=== PATIENT | female | born 1960 | race Caucasian/White ===

== ENCOUNTER 2018-08-15 09:46 | Day surgery (SDC) | payer MEDICARE, MEDICAID ==
[2018-08-15] VITALS (9 sets, daily range): BP systolic 150–185; BP diastolic 64–84
[~2018-08-15] VITALS: Ht 152.4 cm; Wt 75.1 kg
[~2018-08-15 09:46] MED LIST: ASPI-1071 PO; ATE25T PO; ATOR40TA3 PO; CALC500T11 PO; DOCUMENT DATE & TIME OF BETA-BLOCKER PO ONE; FERR-29 PO; HYDR-3973 PO; LEVO125T8 PO; LOSA50TA21 PO; MULT-38 PO; OMEP40CA37 PO; PIOG30TA10 PO; SERT50TA PO; TEN1T PO; TRIA15CR61 TOP; VANCOMYCIN INJ 1000 MG in NORMAL SALINE 250ml IV.SOLN IV ONE; ZOLP5TAB8 PO; acetaminophen 325mg tablet PO ONE; celeCOXIB 100mg capsule PO ONE; famotidine 20mg tablet PO ONE; gabapentin 300mg capsule PO ONE; metoclopramide 5 mg/ml inj IV ONE; oxyCODONE SR 10mg (sust. release) tab -2 tabs (20mg) PO ONE; ringers solution, lacted 1,000 ML IV SCH
[2018-08-15 11:34] LABS: BASOPHILS # (AUTO) 0.1 X10'3 (0-0.2); BASOPHILS % (AUTO) 0.7 % (0-1); EOSINOPHILS # (AUTO) 0.2 X10'3 (0-0.9); EOSINOPHILS % (AUTO) 1.9 % (0-6); LYMPHOCYTES # (AUTO) 1.7 X10'3 (1.1-4.8); MEAN CORPUSCULAR HEMOGLOBIN 27.2 PG (27.0-31.0); MEAN CORPUSCULAR HGB CONC 32.8 % (33.0-36.5); MEAN CORPUSCULAR VOLUME 83.1 FL (78-98); MEAN PLATELET VOLUME 9.3 FL (7.4-10.4); MONOCYTES # (AUTO) 0.5 X10'3 (0-0.9); MONOCYTES % (AUTO) 5.4 % (2-12); NEUTROPHILS # (AUTO) 6.1 X10'3 (1.8-7.7); PRE OP HEMATOCRIT 38.4 % (35.0-45.0); PRE OP HEMOGLOBIN 12.6 g/dL (12.0-16.0); PRE OP PLATELET COUNT 218 X10'3 (140-440); RED BLOOD COUNT 4.62 X10'6 (4.20-5.60); RED CELL DISTRIBUTION WIDTH 15.4 % (11.5-14.5)
[2018-08-15] MEDS ORDERED: cefazolin/dext.iso 2gm/100 ML IV ONE (11:52)
[2018-08-15 12:04] LABS: ALANINE AMINOTRANSFERASE 21 U/L (12-78); ALBUMIN 3.2 G/DL (3.4-5.0); ALBUMIN/GLOBULIN RATIO 0.9 (1.1-1.5); ALKALINE PHOSPHATASE 122 IU/L (46-116); ANION GAP 8 (8-16); ASPARTATE AMINO TRANSFERASE 20 U/L (10-37); BILIRUBIN,TOTAL 0.4 MG/DL (0.1-1.0); BLOOD UREA NITROGEN 28 MG/DL (7-18); BUN/CREATININE RATIO 20.3 (6.6-38.0); CALCIUM 8.9 MG/DL (8.5-10.1); CHLORIDE 106 MMOL/L (99-107); CREATININE 1.38 MG/DL (0.40-0.90); GLUCOSE 146 MG/DL (70-104); POTASSIUM 5.1 MMOL/L (3.5-5.1); SODIUM 142 MMOL/L (135-145); TOTAL CARBON DIOXIDE 28.5 MMOL/L (24-32); TOTAL PROTEIN 6.8 G/DL (6.4-8.2); eGFR 39 ML/MIN
[2018-08-15] MEDS ORDERED: ROPIVAcaine 0.5% (5mg/ml) 30ml vial ONE (12:20)
[2018-08-15] MEDS ORDERED: midazolam 2 mg/2 ml injection ONE (12:22)
[2018-08-15] MEDS ORDERED: fentaNYL/PF 50MCG/1 ML 2ML syringe ONE (12:22)
[2018-08-15] MEDS ORDERED: propofol inj 20 ML IV ONE (12:24)
[2018-08-15] MEDS ORDERED: LIDOcaine 2% (20mg/ml) 5ml vial ONE (12:24)
[2018-08-15] MEDS ORDERED: sevoflurane 250ml liquid IH ONE (12:42)
[2018-08-15] MEDS ORDERED: cefazolin/dext.iso 2gm/50ml 50 ML IV ONE (12:55)
[2018-08-15] MEDS ORDERED: ceFAZolin 1GM/D5W- ADD-VANTAGE 50 ML IV ONE (12:55)
[2018-08-15] MEDS ORDERED: ePHEDrine 50MG/ML INJ. ONE (13:11)
[2018-08-15] MEDS ORDERED: enalaprilat dihydrate 2.5mg/2ml vial IV PRN (13:30)
[2018-08-15] MEDS ORDERED: ondansetron/PF 4mg/2ml inj IV PRN (13:30)
[2018-08-15] MEDS ORDERED: hydrALAZINE 20mg/ml inj. IV PRN (13:30)
[2018-08-15] MEDS ORDERED: morphine 4 MG/ML inj SYRINge IV PRN ×2 (13:30)
[2018-08-15] MEDS ORDERED: ringers solution, lacted 1,000 ML IV SCH (13:30)
[2018-08-15] MEDS ORDERED: fentaNYL/PF 50MCG/1 ML 2ML syringe IV PRN ×2 (13:30)
[2018-08-15] MEDS ORDERED: naloxone 0.4 mg/ml inj ONE (13:52)
== END 2018-08-15 15:18 | disposition home or self-care (01) ==
LOC: PAS 09:46
PROVIDERS: ATTEND Orthopaedic Surgery
DX: S52.552B Other extraarticular fracture of lower end of left radius, initial encounter for open fracture type I or II (principal); G89.18 Other acute postprocedural pain; E89.0 Postprocedural hypothyroidism; G47.33 Obstructive sleep apnea (adult) (pediatric); I25.2 Old myocardial infarction; E11.22 Type 2 diabetes mellitus with diabetic chronic kidney disease; F32.9 Major depressive disorder, single episode, unspecified; E66.9 Obesity, unspecified; I25.10 Atherosclerotic heart disease of native coronary artery without angina pectoris; K21.9 Gastro-esophageal reflux disease without esophagitis; I12.9 Hypertensive chronic kidney disease with stage 1 through stage 4 chronic kidney disease, or unspecified chronic kidney disease; N18.9 Chronic kidney disease, unspecified; Z68.32 Body mass index [BMI] 32.0-32.9, adult; Z82.49 Family history of ischemic heart disease and other diseases of the circulatory system; Z95.828 Presence of other vascular implants and grafts; Z79.82 Long term (current) use of aspirin; Z79.891 Long term (current) use of opiate analgesic; Z88.0 Allergy status to penicillin; Z95.5 Presence of coronary angioplasty implant and graft; Z79.899 Other long term (current) drug therapy; Z88.8 Allergy status to other drugs, medicaments and biological substances; Z98.890 Other specified postprocedural states; W19.XXXA Unspecified fall, initial encounter; Y93.89 Activity, other specified; Y92.89 Other specified places as the place of occurrence of the external cause; Y99.8 Other external cause status
CPT/HCPCS: 25607; 36415; 64417; 80053; 82948; 85025; A4565; A6222; A6446; A6449; C1713; J0690; J2001; J2250; J2310; J2704; J2765; J2795; J3010; J3370; J7120; A7000

== ENCOUNTER 2018-12-05 04:29 | Outpatient (CLI) | payer MEDICARE, MEDICAID ==
[~2018-12-05 04:29] MED LIST changes: -DOCUMENT DATE & TIME OF BETA-BLOCKER PO ONE; -LOSA50TA21 PO; +LOSA50TA64 PO; -VANCOMYCIN INJ 1000 MG in NORMAL SALINE 250ml IV.SOLN IV ONE; -acetaminophen 325mg tablet PO ONE; -celeCOXIB 100mg capsule PO ONE; -famotidine 20mg tablet PO ONE; -gabapentin 300mg capsule PO ONE; -metoclopramide 5 mg/ml inj IV ONE; -oxyCODONE SR 10mg (sust. release) tab -2 tabs (20mg) PO ONE; -ringers solution, lacted 1,000 ML IV SCH
== END 2018-12-05 23:59 | disposition home or self-care (01) ==
LOC: DIABETIC 04:29
PROVIDERS: ATTEND Family Medicine
DX: E11.65 Type 2 diabetes mellitus with hyperglycemia (principal); I10 Essential (primary) hypertension; K21.9 Gastro-esophageal reflux disease without esophagitis; Z79.899 Other long term (current) drug therapy; Z79.82 Long term (current) use of aspirin
CPT/HCPCS: G0108

== ENCOUNTER 2021-03-09 12:31 | Outpatient (CLI) | payer MEDICARE, MEDICAID ==
[~2021-03-09] VITALS: Ht 152.4 cm; Wt 62.6 kg
[~2021-03-09 12:31] MED LIST changes: -ATOR40TA3 PO; +ATOR40TA7 PO; +OMEP40CA21 PO; -OMEP40CA37 PO
[2022-02-06] MEDS ORDERED: TAMO20TA4 PO (11:38)
[2022-02-06] MEDS ORDERED: INSU100I25 SQ (11:38)
[2022-02-06] MEDS ORDERED: DULA1.5P SQ ×2 (11:38→12:28)
[2022-02-06] MEDS ORDERED: LEVO150T8 PO (11:38)
[2022-02-06] MEDS ORDERED: CHOL100017 PO (11:38)
[2022-02-06] MEDS ORDERED: ZOLP10TA PO (11:38)
[2022-02-06] MEDS ORDERED: ATOR40TA72 PO (11:38)
[2022-02-06] MEDS ORDERED: ATEN50TA8 PO (11:38)
[2022-02-06] MEDS ORDERED: FERR325T7 PO (11:38)
[2022-02-06] MEDS ORDERED: VENL37.589 PO (11:38)
[2022-02-06] MEDS ORDERED: NITR0.4T51 SL (11:39)
[2022-03-09 13:42] LABS: ABG BASE EXCESS 0.5 mmol/L (-2.0-2.0); ABG HCO3 23.1 mmol/L (22.0-26.0); ABG OXYGEN SATURATION 95.9 % (94-97); ABG PCO2 (T) 30.6 mmHg (32.0-45.0); ABG PO2 (T) 82.3 mmHg (75.0-100.0); ALLEN'S TEST POSITIVE; FCOHb 0.4 % (0.0-3.9); FMetHb 0.1 % (0.0-1.5); FO2Hb 95.4 % (94-97)
[2022-03-09 15:07] LABS: PRE OP PROTIME 10.8 SECONDS (9.0-12.0)
[2022-03-09 15:17] LABS: ALBUMIN 2.9 G/DL (3.4-5.0); ALBUMIN/GLOBULIN RATIO 0.6 (1.1-1.5); ALKALINE PHOSPHATASE 101 IU/L (46-116); BLOOD UREA NITROGEN 17 MG/DL (7-18); BUN/CREATININE RATIO 9.4 (6.6-38.0); CALCIUM 8.7 MG/DL (8.5-10.1); CHLORIDE 101 MMOL/L (99-107); CREATININE 1.81 MG/DL (0.40-0.90); PRE OP ALT 55 U/L (30-65); PRE OP ANION GAP 13 (8-16); PRE OP AST 50 U/L (10-37); PRE OP BILIRUB, TOTAL 0.8 MG/DL (0.0-1.0); PRE OP POTASSIUM 4.1 MMOL/L (3.4-5.1); PRE OP SODIUM 141 MMOL/L (135-145); TOTAL CARBON DIOXIDE 27.1 MMOL/L (24-32); TOTAL PROTEIN 7.7 G/DL (6.4-8.2); eGFR 28 ML/MIN
[2022-03-09 15:18] LABS: HEMOGLOBIN A1C 9.8 % (4.5-6.2)
[2022-03-09 15:24] LABS: PRE OP GLUCOSE 356 MG/DL (70-104)
[2022-03-11] MEDS ORDERED: ringers solution, lacted 1,000 ML IV SCH (05:00)
[2022-03-11] MEDS ORDERED: vancomycin/NS 1 GM in NS 250 ML IV ONE (05:30)
[2022-03-11] MEDS ORDERED: DOCUMENT DATE & TIME OF BETA-BLOCKER PO ONE (05:30)
[2022-03-11] MEDS ORDERED: metoprolol tartrate 12.5mg (1/2 tablet) PO ONE (05:30)
[2022-03-11] MEDS ORDERED: albuterol 2.5 MG/3 ML nebule NEB ONE (05:30)
[2022-03-11] MEDS ORDERED: mupirocin 2% nasal ointment 1gm UD NS PRN (05:30)
[2022-03-11] MEDS ORDERED: famotidine 20mg tablet PO ONE (05:30)
[2022-03-11] MEDS ORDERED: cefazolin/dext.iso 2gm/50ml IV ONE (05:30)
[2022-03-11] MEDS ORDERED: Insulin Reg/NS 100units/100mL 100 ML IV SCH (05:30)
[2022-03-11] MEDS ORDERED: LORazepam 2 mg/ml vial IV PRN (05:30)
== END 2022-03-09 23:59 | disposition home or self-care (01) ==
LOC: PRE-OP 12:31 → EDSTATUS 03-11 08:00
PROVIDERS: ATTEND Thoracic Surgery (Cardiothoracic Vascular Surgery)
DX: Z01.812 Encounter for preprocedural laboratory examination (principal); R94.31 Abnormal electrocardiogram [ECG] [EKG]; I65.23 Occlusion and stenosis of bilateral carotid arteries; R94.2 Abnormal results of pulmonary function studies; I25.10 Atherosclerotic heart disease of native coronary artery without angina pectoris; Z20.822 Contact with and (suspected) exposure to COVID-19
CPT/HCPCS: 36415; 36600; 71046; 80053; 82803; 83036; 84443; 85018; 85610; 85730; 86885; 86900; 86901; 86920; 87081; 87635; 93005; 93880; 93971; J0690; J1815; J3370; J7120

== ENCOUNTER 2022-02-05 16:27 | Inpatient (IN) | payer MEDICARE, MEDICAID ==
[~2022-02-05] VITALS: Ht 154.9 cm; Wt 60.5 kg
[2022-02-05 18:05] LABS: BASOPHILS # (AUTO) 0.1 X10'3 (0-0.2); BASOPHILS % (AUTO) 0.8 % (0-1); EOSINOPHILS % (AUTO) 0.1 % (0-6); HEMATOCRIT 32.5 % (35.0-45.0); HEMOGLOBIN 10.4 g/dl (12.0-16.0); LYMPHOCYTES # (AUTO) 1.8 X10'3 (1.1-4.8); LYMPHOCYTES % (AUTO) 9.9 % (21-51); MEAN CORPUSCULAR HGB CONC 32.1 g/dL (33.0-36.5); MEAN CORPUSCULAR VOLUME 84.2 FL (78-98); MEAN PLATELET VOLUME 8.3 FL (7.4-10.4); MONOCYTES # (AUTO) 1.2 X10'3 (0-0.9); MONOCYTES % (AUTO) 6.6 % (2-12); NEUTROPHILS # (AUTO) 14.8 X10'3 (1.8-7.7); NEUTROPHILS % (AUTO) 82.6 % (42-75); PLATELET COUNT 465 X10'3 (140-440); RED BLOOD COUNT 3.86 X10'6 (4.20-5.60); RED CELL DISTRIBUTION WIDTH 13.4 % (11.5-14.5); WHITE BLOOD COUNT 17.9 X10'3 (4.5-11.0)
[2022-02-05 18:14] LABS: ALANINE AMINOTRANSFERASE 32 U/L (12-78); ALBUMIN 2.3 G/DL (3.4-5.0); ALBUMIN/GLOBULIN RATIO 0.5 (1.1-1.5); ALKALINE PHOSPHATASE 75 IU/L (46-116); ANION GAP 13 (8-16); ASPARTATE AMINO TRANSFERASE 21 U/L (10-37); BILIRUBIN,TOTAL 0.5 MG/DL (0.1-1.0); BLOOD UREA NITROGEN 26 MG/DL (7-18); CALCIUM 8.7 MG/DL (8.5-10.1); CHLORIDE 98 MMOL/L (99-107); GLUCOSE 409 MG/DL (70-104); POTASSIUM 4.3 MMOL/L (3.5-5.1); SODIUM 133 MMOL/L (135-145); TOTAL CARBON DIOXIDE 22.1 MMOL/L (24-32); TOTAL PROTEIN 6.8 G/DL (6.4-8.2); eGFR 25 ML/MIN
[2022-02-05] MEDS ORDERED: normal saline 1000ML IV soln IVB ONE (18:25)
--- NOTE | 2022-02-05 18:37 | NUR ---
PATIENT'S CAREGIVER (FRIEND) WALT BOB CONTACT NUMBER:
[2022-02-05] MEDS ORDERED: CefTRIAXone 2gm/NS 100ml IVPB 100 ML IV ONE (20:00)
[2022-02-05] MEDS ORDERED: HYDROcodone/acetaminophen 10/325mg tab PO PRN (21:55)
[2022-02-05] MEDS ORDERED: mag hydrox/Alum hydrox/simeth 30ml oral suspension PO PRN (21:55)
[2022-02-05] MEDS ORDERED: normal saline 1000ml 1,000 ML IV SCH (21:55)
[2022-02-05] MEDS ORDERED: magnesium hydroxide 30ml (MOM) UD suspension PO PRN (21:55)
[2022-02-05] MEDS ORDERED: morphine 2 MG/ML inj. syringe IV PRN (21:55)
[2022-02-05] MEDS ORDERED: diphenhydrAMINE 50 mg/ml inj IV PRN (21:55)
[2022-02-05] MEDS ORDERED: acetaminophen 325mg tablet PO PRN ×2 (21:55)
[2022-02-05] MEDS ORDERED: diphenhydrAMINE 25mg capsule PO PRN (21:55)
[2022-02-05] MEDS ORDERED: ipratropium/albuterol 3ml nebule NEB PRN (21:55)
[2022-02-05] MEDS ORDERED: acetaminophen 650mg rectal suppository RC PRN (21:55)
[2022-02-05] MEDS ORDERED: bisacodyl 10mg suppository rectal RC PRN (21:55)
[2022-02-05] MEDS ORDERED: ondansetron/PF 4mg/2ml inj IV PRN (21:55)
[2022-02-05] MEDS ORDERED: HYDROcodone/acetaminophen 5mg/325mg tablet PO PRN (21:55)
[2022-02-05] MEDS ORDERED: glucagon, human recombinant 1mg kit SUBCUT PRN (22:05)
[2022-02-05] MEDS ORDERED: dextrose 50%-water 50ml dispensing syringe IV PRN ×2 (22:05)
[2022-02-05] MEDS ORDERED: MESSAGE TO PHARMACY PO ONE (22:05)
[2022-02-05] MEDS ORDERED: DEXTROSE 15 GM of carb/4 tabs (each vial/BOTTLE has 4 tablets) PO PRN ×2 (22:05)
[2022-02-05] MEDS: normal saline 1000ml 1,000 ML IV SCH (22:23)
[2022-02-05 22:30] LABS: HEMOGLOBIN A1C 10.3 % (4.5-6.2)
[2022-02-05 22:37] LABS: CREATINE KINASE 24 U/L (26-192); LIPASE < 50 U/L (73-393); MAGNESIUM 1.8 MG/DL (1.5-2.4); PHOSPHORUS 3.1 MG/DL (2.3-4.5)
[2022-02-05 23:02] LABS: APTT 26 SECONDS (22-32); D-DIMER 4.89 MG/L FEU (0-0.50)
[2022-02-06] VITALS (8 sets, daily range): BP systolic 115–195; BP diastolic 46–92
[2022-02-06 06:05] LABS: CHOL/HDL RATIO 4.2 (0.00-4.99); CHOLESTEROL 144 MG/DL (0-200); HDL CHOLESTEROL 34 MG/DL (35-60); LDL CHOLESTEROL 77 MG/DL (50-100); TRIGLYCERIDES 138 MG/DL (20-135)
[2022-02-06] MEDS: docusate sod 100mg capsule PO SCH ×2 (08:00→19:09)
[2022-02-06] MEDS: heparin, porcine 5000 units/ml vial SQ SCH ×2 (08:00→19:09)
[2022-02-06] MEDS ORDERED: magnesium 4gm in 100ml NS 100 ML IV PRN (08:55)
[2022-02-06] MEDS ORDERED: potassium CL 10mEq/100ml bag 100 ML IV PRN (08:55)
[2022-02-06] MEDS ORDERED: potassium Cl 20 mEq SR tablet PO PRN (08:55)
[2022-02-06] MEDS ORDERED: magnesium Cl slow-release 64mg tablet PO PRN (08:55)
[2022-02-06] MEDS: insulin Lispro (HumaLOG) vial - multi-dose SQ SCH ×3 (09:23→21:05)
[2022-02-06] MEDS: azithromycin/NS 500mg/250ml 250 ML IV SCH (10:54)
[2022-02-06] MEDS: ipratropium/albuterol 3ml nebule NEB SCH ×4 (10:58→22:24)
[2022-02-06 11:05] LABS: PLEURAL FLUID PH 7.405 (7.63-7.65)
[2022-02-06 11:06] LABS: BFSOURCE PLEURAL FLD
[2022-02-06] MEDS ORDERED: VENL37.589 PO (11:38)
[2022-02-06] MEDS ORDERED: CHOL100017 PO (11:38)
[2022-02-06] MEDS ORDERED: FERR325T7 PO (11:38)
[2022-02-06] MEDS ORDERED: ZOLP10TA PO (11:38)
[2022-02-06] MEDS ORDERED: LEVO150T8 PO (11:38)
[2022-02-06] MEDS ORDERED: INSU100I25 SQ (11:38)
[2022-02-06] MEDS ORDERED: DULA1.5P SQ ×2 (11:38→12:28)
[2022-02-06] MEDS ORDERED: TAMO20TA4 PO (11:38)
[2022-02-06] MEDS ORDERED: ATOR40TA72 PO (11:38)
[2022-02-06] MEDS ORDERED: ATEN50TA8 PO (11:38)
[2022-02-06 11:39] LABS: GLUCOSE,BODY FLUID 270 MG/DL; LDH,BODY FLUID 105 U/L; TOTAL PROTEIN,BODY FLUID 3.9 G/DL
[2022-02-06] MEDS ORDERED: NITR0.4T51 SL (11:39)
[2022-02-06 11:49] LABS: BF MESOTHELIAL CELLS FEW; BF RBC COUNT 2025 /CU MM; BF WBC COUNT 545 /CU MM (0-1000); BFAPPEAR CLOUDY; BFCOLOR YELLOW; BFVOLUME 52 ML; LYMPHOCYTES,BODY FLUID 75 %; MONOCYTES,BODY FLUID 2 %; NEUTROPHILS,BODY FLUID 23 %
--- NOTE | 2022-02-06 16:37 | NUR ---
DM consult: Pt w/ hx DM, A1c 10.3 per EMR. human resource internship provided pt at bedside w/ written and verbal DM education including RD contact information. Pt states she eats typical meals of spaghetti or chili at lunch and dinner, sandwiches or burritos for breakfast, and salads and fruit for snacks. Pt did not have any questions. Will continue to follow. Addendum: 02/06/22 at 1637 by Sandy Goddard Clinical Auditor RD Amended: Links added. Addendum: 02/06/22 at [address] I have reviewed and agree with note by Clinical Auditor. CHARLETTE Camejo
--- NOTE | 2022-02-06 18:39 | NUR ---
Patient in room MED 314. I have received report from Shantanu JAVIER and had the opportunity to ask questions and assume patient care.
[2022-02-06] MEDS: K and/or MAG REPLACEMENT MC SCH (19:08)
[2022-02-06] MEDS: cefTRIAXone 1g/NS 100ml IVPB 100 ML IV SCH (19:08)
[2022-02-06] MEDS: insulin glargine (Lantus) pen - multi-dose SQ SCH (21:07)
[2022-02-06] MEDS ORDERED: nitroGLYCERIN 0.4mg SUBLingual tab SL PRN (22:55)
[2022-02-06 23:01] LABS: CLARITY,URINE CLOUDY (Clear); COLOR,URINE YELLOW (Yellow); GLUCOSE, URINE 100 mg/dl (Neg); KETONES,URINE 15 mg/dl (Neg); LEUKOCYTE ESTERASE ,URINE SMALL (Neg); NITRITES, URINE NEGATIVE (Neg); OCCULT BLOOD,URINE NEGATIVE (Neg); PH,URINE 5.5 (4.8-8.0); PROTEIN,URINE TRACE mg/dl (Neg); UROBILINOGEN,URINE 0.2 E.U/dL (0.2-1.0)
[2022-02-06 23:08] LABS: UA COLLECTION TYPE OTHER
[2022-02-06 23:22] LABS: BACTERIA,URINE FEW /HPF (Neg); RBC,URINE NONE SEEN /HPF (0-2)
[2022-02-06 23:23] LABS: MUCUS STRANDS NONE SEEN /LPF (Neg); SQUAMOUS EPITHELIAL CELL,UR FEW /LPF (FEW); YEAST MANY /HPF (NEGATIVE)
[2022-02-07 02:00] VITALS: BP 139/56
[2022-02-07] MEDS: ipratropium/albuterol 3ml nebule NEB SCH ×6 (03:18→23:40)
[2022-02-07 06:00] VITALS: BP 131/50
--- NOTE | 2022-02-07 06:20 | NUR ---
Problems reprioritized. Patient report given, questions answered & plan of care reviewed with Ginny JAVIER.
[2022-02-07 07:02] LABS: BASOPHILS # (AUTO) 0.1 X10'3 (0-0.2); BASOPHILS % (AUTO) 0.6 % (0-1); EOSINOPHILS # (AUTO) 0.1 X10'3 (0-0.9); HEMATOCRIT 30.3 % (35.0-45.0); HEMOGLOBIN 9.7 g/dl (12.0-16.0); LYMPHOCYTES % (AUTO) 20.6 % (21-51); MEAN CORPUSCULAR VOLUME 84.2 FL (78-98); MEAN PLATELET VOLUME 8.4 FL (7.4-10.4); MONOCYTES # (AUTO) 0.8 X10'3 (0-0.9); MONOCYTES % (AUTO) 7.9 % (2-12); NEUTROPHILS # (AUTO) 6.7 X10'3 (1.8-7.7); NEUTROPHILS % (AUTO) 69.9 % (42-75); PLATELET COUNT 319 X10'3 (140-440); RED BLOOD COUNT 3.59 X10'6 (4.20-5.60); RED CELL DISTRIBUTION WIDTH 13.4 % (11.5-14.5); WHITE BLOOD COUNT 9.6 X10'3 (4.5-11.0)
[2022-02-07 07:17] LABS: ALANINE AMINOTRANSFERASE 26 U/L (12-78); ALBUMIN/GLOBULIN RATIO 0.5 (1.1-1.5); ALKALINE PHOSPHATASE 65 IU/L (46-116); ANION GAP 15 (8-16); ASPARTATE AMINO TRANSFERASE 26 U/L (10-37); BILIRUBIN,TOTAL 0.2 MG/DL (0.1-1.0); BLOOD UREA NITROGEN 21 MG/DL (7-18); BUN/CREATININE RATIO 13.2 (6.6-38.0); CALCIUM 8.4 MG/DL (8.5-10.1); CHLORIDE 107 MMOL/L (99-107); CREATININE 1.59 MG/DL (0.40-0.90); GLUCOSE 183 MG/DL (70-104); MAGNESIUM 1.9 MG/DL (1.5-2.4); PHOSPHORUS 3.2 MG/DL (2.3-4.5); POTASSIUM 3.4 MMOL/L (3.5-5.1); SODIUM 145 MMOL/L (135-145); TOTAL PROTEIN 6.1 G/DL (6.4-8.2); eGFR 33 ML/MIN
[2022-02-07] MEDS: K and/or MAG REPLACEMENT MC SCH ×2 (08:00→19:32)
[2022-02-07] MEDS: docusate sod 100mg capsule PO SCH ×2 (08:48→20:33)
[2022-02-07] MEDS: heparin, porcine 5000 units/ml vial SQ SCH ×2 (08:48→20:34)
[2022-02-07] MEDS: cholecalciferol (vitamin D3) 1,000 unit (25mcg) tablet PO SCH (08:48)
--- NOTE | 2022-02-07 08:48 | NUR ---
DM consult: Patient's A1c has already been addressed, see below. DM consult: Pt w/ hx DM, A1c 10.3 per EMR. grad intern provided pt at bedside w/ written and verbal DM education including RD contact information. Pt states she eats typical meals of spaghetti or chili at lunch and dinner, sandwiches or burritos for breakfast, and salads and fruit for snacks. Pt did not have any questions. Will continue to follow. Addendum: 02/07/22 at [address] Amended: Links added.
[2022-02-07] MEDS: atorvastatin 20mg tablet PO SCH (08:53)
[2022-02-07] MEDS: levoTHYROXINE 75mcg tablet PO SCH (08:53)
[2022-02-07] MEDS: atenolol 50mg tablet PO SCH (08:54)
[2022-02-07] MEDS: ferrous sulfate 325mg tablet PO SCH (08:54)
[2022-02-07] MEDS: venlafaxine XR 37.5mg cap (Q24H) PO SCH (08:55)
[2022-02-07] MEDS: azithromycin/NS 500mg/250ml 250 ML IV SCH (08:57)
[2022-02-07] MEDS: potassium Cl 20 mEq SR tablet PO PRN ×3 (08:57→17:28)
[2022-02-07 09:12] LABS: TOTAL CELLS COUNTED 100
[2022-02-07 09:13] LABS: PLATELET ESTIMATE NORMAL; POLYCHROMASIA FEW
[2022-02-07 09:14] LABS: ACANTHOCYTES FEW; BURR CELLS FEW; TEAR DROP CELLS FEW
[2022-02-07] MEDS: insulin Lispro (HumaLOG) vial - multi-dose SQ SCH ×2 (09:26→18:30)
[2022-02-07 10:45] VITALS: BP 124/47
[2022-02-07] MEDS ORDERED: hydrALAZINE 20mg/ml inj. IV PRN (13:40)
[2022-02-07 15:00] VITALS: BP 143/48
[2022-02-07] MEDS: tamoxifen 10mg tablet PO SCH (15:36)
--- NOTE | 2022-02-07 15:36 | NUR ---
administered tamoxifin late d/t med not avail.
--- NOTE | 2022-02-07 17:45 | NUR ---
1200 BG was 87, was not able to count carbs on tray as tray was removed. Did not cover with humalog
[2022-02-07 18:00] VITALS: BP 173/60
[2022-02-07] MEDS: zolpidem 5mg tablet PO SCH (20:33)
[2022-02-07] MEDS: cefTRIAXone 1g/NS 100ml IVPB 100 ML IV SCH (22:13)
[2022-02-07] MEDS: insulin glargine (Lantus) pen - multi-dose SQ SCH (22:17)
[2022-02-07] MEDS: normal saline 1000ml 1,000 ML IV SCH (22:22)
[2022-02-08] MEDS: ipratropium/albuterol 3ml nebule NEB SCH ×5 (03:34→19:33)
[2022-02-08 06:00] VITALS: BP 156/63
[2022-02-08 06:01] VITALS: BP 140/69
--- NOTE | 2022-02-08 06:10 | NUR ---
0600 VS ENTRY ON WRONG PATIENT. 0601 IS THIS BOLIVAR [place].
--- NOTE | 2022-02-08 06:32 | NUR ---
Patient in room PCU 3026. I have received report from CONCEPCION CHAVES, and had the opportunity to ask questions and assume patient care.
[2022-02-08 06:57] LABS: BASOPHILS # (AUTO) 0.1 X10'3 (0-0.2); BASOPHILS % (AUTO) 0.8 % (0-1); EOSINOPHILS # (AUTO) 0.3 X10'3 (0-0.9); EOSINOPHILS % (AUTO) 3.9 % (0-6); LYMPHOCYTES # (AUTO) 1.7 X10'3 (1.1-4.8); LYMPHOCYTES % (AUTO) 21.1 % (21-51); MEAN PLATELET VOLUME 8.5 FL (7.4-10.4); MONOCYTES # (AUTO) 0.6 X10'3 (0-0.9); MONOCYTES % (AUTO) 7.6 % (2-12); NEUTROPHILS # (AUTO) 5.3 X10'3 (1.8-7.7); NEUTROPHILS % (AUTO) 66.6 % (42-75); PLATELET COUNT 334 X10'3 (140-440); RED BLOOD COUNT 3.84 X10'6 (4.20-5.60); WHITE BLOOD COUNT 7.9 X10'3 (4.5-11.0)
[2022-02-08 07:09] LABS: HEMATOCRIT 30.4 % (35.0-45.0); HEMOGLOBIN 10.3 g/dl (12.0-16.0); MEAN CORPUSCULAR HGB CONC 33.8 g/dL (33.0-36.5); RED CELL DISTRIBUTION WIDTH 12.9 % (11.5-14.5)
[2022-02-08 07:31] LABS: ALANINE AMINOTRANSFERASE 32 U/L (12-78); ALBUMIN 2.1 G/DL (3.4-5.0); ALBUMIN/GLOBULIN RATIO 0.5 (1.1-1.5); ALKALINE PHOSPHATASE 68 IU/L (46-116); ANION GAP 13 (8-16); ASPARTATE AMINO TRANSFERASE 37 U/L (10-37); BILIRUBIN,TOTAL 0.2 MG/DL (0.1-1.0); BLOOD UREA NITROGEN 14 MG/DL (7-18); BUN/CREATININE RATIO 10.1 (6.6-38.0); CALCIUM 8.4 MG/DL (8.5-10.1); CHLORIDE 110 MMOL/L (99-107); CREATININE 1.38 MG/DL (0.40-0.90); GLUCOSE 205 MG/DL (70-104); PHOSPHORUS 2.8 MG/DL (2.3-4.5); POTASSIUM 4.8 MMOL/L (3.5-5.1); SODIUM 145 MMOL/L (135-145); TOTAL CARBON DIOXIDE 22.2 MMOL/L (24-32); TOTAL PROTEIN 6.2 G/DL (6.4-8.2); eGFR 38 ML/MIN
[2022-02-08] MEDS: K and/or MAG REPLACEMENT MC SCH ×2 (08:00→20:00)
[2022-02-08 08:07] LABS: MAGNESIUM 1.9 MG/DL (1.5-2.4)
[2022-02-08] MEDS: azithromycin/NS 500mg/250ml 250 ML IV SCH (08:08)
[2022-02-08 08:09] LABS: PLATELET ESTIMATE NORMAL; POLYCHROMASIA FEW; TOTAL CELLS COUNTED 100
[2022-02-08 08:10] LABS: % IRON SATURATION 27 % (11-46); ACANTHOCYTES FEW; BURR CELLS FEW; IRON 37 UG/DL (49-151); TOTAL IRON BINDING CAPACITY 139 UG/DL (259-388)
[2022-02-08] MEDS: tamoxifen 10mg tablet PO SCH (08:10)
[2022-02-08] MEDS: levoTHYROXINE 75mcg tablet PO SCH (08:10)
[2022-02-08] MEDS: docusate sod 100mg capsule PO SCH ×2 (08:10→20:22)
[2022-02-08] MEDS: ferrous sulfate 325mg tablet PO SCH ×2 (08:10→20:22)
[2022-02-08] MEDS: cholecalciferol (vitamin D3) 1,000 unit (25mcg) tablet PO SCH (08:10)
[2022-02-08] MEDS: atorvastatin 20mg tablet PO SCH (08:10)
[2022-02-08] MEDS: atenolol 50mg tablet PO SCH (08:11)
[2022-02-08 08:12] LABS: ELLIPTOCYTES FEW
[2022-02-08] MEDS: heparin, porcine 5000 units/ml vial SQ SCH ×2 (08:12→20:21)
[2022-02-08] MEDS: venlafaxine XR 37.5mg cap (Q24H) PO SCH (09:38)
[2022-02-08] MEDS: insulin Lispro (HumaLOG) vial - multi-dose SQ SCH ×3 (09:42→20:17)
[2022-02-08] MEDS ORDERED: fluconazole 100mg tablet PO ONE (10:00)
[2022-02-08 11:00] VITALS: BP 134/58
[2022-02-08 15:00] VITALS: BP 125/58
[2022-02-08] MEDS: ascorbic acid 500mg tablet PO SCH (17:53)
--- NOTE | 2022-02-08 18:25 | NUR ---
Problems reprioritized. Patient report given, questions answered & plan of care reviewed with CONCEPCION MARTINEZ.
[2022-02-08 19:00] VITALS: BP 125/58
[2022-02-08] MEDS: cefTRIAXone 1g/NS 100ml IVPB 100 ML IV SCH (20:13)
[2022-02-08] MEDS: zolpidem 5mg tablet PO SCH (20:21)
[2022-02-08] MEDS: insulin glargine (Lantus) pen - multi-dose SQ SCH (21:53)
[2022-02-08 23:00] VITALS: BP 132/61
[2022-02-09] VITALS (8 sets, daily range): BP systolic 98–174; BP diastolic 48–79
[2022-02-09] MEDS: ipratropium/albuterol 3ml nebule NEB SCH ×7 (00:26→23:41)
[2022-02-09 05:32] LABS: BASOPHILS # (AUTO) 0.1 X10'3 (0-0.2); BASOPHILS % (AUTO) 0.6 % (0-1); EOSINOPHILS # (AUTO) 0.4 X10'3 (0-0.9); EOSINOPHILS % (AUTO) 4.9 % (0-6); HEMATOCRIT 31.6 % (35.0-45.0); LYMPHOCYTES # (AUTO) 1.9 X10'3 (1.1-4.8); LYMPHOCYTES % (AUTO) 22.2 % (21-51); MEAN CORPUSCULAR HEMOGLOBIN 26.7 PG (27.0-31.0); MEAN CORPUSCULAR HGB CONC 31.6 g/dL (33.0-36.5); MEAN CORPUSCULAR VOLUME 84.7 FL (78-98); MONOCYTES # (AUTO) 0.6 X10'3 (0-0.9); MONOCYTES % (AUTO) 6.7 % (2-12); NEUTROPHILS # (AUTO) 5.5 X10'3 (1.8-7.7); NEUTROPHILS % (AUTO) 65.6 % (42-75); PLATELET COUNT 353 X10'3 (140-440); RED BLOOD COUNT 3.73 X10'6 (4.20-5.60); RED CELL DISTRIBUTION WIDTH 13.6 % (11.5-14.5); WHITE BLOOD COUNT 8.4 X10'3 (4.5-11.0)
--- NOTE | 2022-02-09 06:37 | NUR ---
Problems reprioritized. Patient report given, questions answered & plan of care reviewed with CONCEPCION Hampton.
[2022-02-09 07:09] LABS: ALANINE AMINOTRANSFERASE 37 U/L (12-78); ALBUMIN 2.2 G/DL (3.4-5.0); ALBUMIN/GLOBULIN RATIO 0.6 (1.1-1.5); ALKALINE PHOSPHATASE 66 IU/L (46-116); ANION GAP 15 (8-16); ASPARTATE AMINO TRANSFERASE 44 U/L (10-37); BILIRUBIN,TOTAL 0.2 MG/DL (0.1-1.0); BLOOD UREA NITROGEN 10 MG/DL (7-18); BUN/CREATININE RATIO 8.1 (6.6-38.0); CALCIUM 8.6 MG/DL (8.5-10.1); CHLORIDE 108 MMOL/L (99-107); CREATININE 1.24 MG/DL (0.40-0.90); GLUCOSE 101 MG/DL (70-104); PHOSPHORUS 2.9 MG/DL (2.3-4.5); POTASSIUM 4.3 MMOL/L (3.5-5.1); SODIUM 145 MMOL/L (135-145); TOTAL PROTEIN 6.2 G/DL (6.4-8.2); eGFR 44 ML/MIN
[2022-02-09 07:16] LABS: MAGNESIUM 1.6 MG/DL (1.5-2.4)
[2022-02-09] MEDS: ferrous sulfate 325mg tablet PO SCH ×2 (07:50→20:01)
[2022-02-09] MEDS: cholecalciferol (vitamin D3) 1,000 unit (25mcg) tablet PO SCH (07:50)
[2022-02-09] MEDS: atenolol 50mg tablet PO SCH (07:50)
[2022-02-09] MEDS: levoTHYROXINE 75mcg tablet PO SCH (07:50)
[2022-02-09] MEDS: ascorbic acid 500mg tablet PO SCH ×2 (07:51→17:30)
[2022-02-09] MEDS: docusate sod 100mg capsule PO SCH ×2 (07:51→20:00)
[2022-02-09] MEDS: heparin, porcine 5000 units/ml vial SQ SCH ×2 (07:51→20:01)
[2022-02-09] MEDS: atorvastatin 20mg tablet PO SCH (07:51)
[2022-02-09] MEDS: azithromycin 250mg tablet PO SCH (07:51)
[2022-02-09] MEDS: tamoxifen 10mg tablet PO SCH (07:52)
[2022-02-09] MEDS: fluconazole 100mg tablet PO SCH (07:55)
[2022-02-09] MEDS: venlafaxine XR 37.5mg cap (Q24H) PO SCH (07:57)
[2022-02-09] MEDS: K and/or MAG REPLACEMENT MC SCH ×2 (08:44→20:00)
[2022-02-09] MEDS ORDERED: LIDOcaine 1% (10mg/ml)w/preservative inj. 20ml MDV ONE ×2 (09:58→13:31)
[2022-02-09 10:03] LABS: PLATELET ESTIMATE NORMAL; TOTAL CELLS COUNTED 100
[2022-02-09] MEDS ORDERED: verapamil 2.5 mg/ml inj IV ONE (13:31)
[2022-02-09] MEDS ORDERED: midazolam 1 mg/ML 2ml injection ONE (13:31)
[2022-02-09] MEDS ORDERED: nitroGLYCERIN in D5W 50mg/250ml (Tridil) infusion IV ONE (13:31)
[2022-02-09] MEDS ORDERED: fentaNYL/PF 50MCG/1 ML 2ML syringe ONE (13:31)
[2022-02-09] MEDS ORDERED: heparin 1,000 UNITS/NS 500ml (2 units/mL) BAG ONE (13:31)
[2022-02-09] MEDS ORDERED: hydrALAZINE 20mg/ml inj. IV ONE (13:31)
[2022-02-09] MEDS ORDERED: heparin 1,000 units/ml 10ml inj ONE (13:31)
[2022-02-09] MEDS ORDERED: iohexol 350MG/ML 100ml bottle IV ONE (13:31)
[2022-02-09] MEDS ORDERED: iohexol 350 MG/ML 50ML vial IV ONE ×2 (13:31→14:53)
--- NOTE | 2022-02-09 16:27 | NUR ---
Page Sent promotional table spacer PAGER ID: [phone] MESSAGE: [id number]. KATH . PATIENT IS BACK FROM [facility]. VERO [id number]
[2022-02-09] MEDS: cloNIDine 0.1 mg tablet PO SCH (20:00)
[2022-02-09] MEDS: cefTRIAXone 1g/NS 100ml IVPB 100 ML IV SCH (20:00)
[2022-02-09] MEDS: normal saline 1000ml 1,000 ML IV SCH ×3 (20:00→21:55)
[2022-02-09] MEDS: zolpidem 5mg tablet PO SCH (20:02)
[2022-02-09] MEDS: temazepam 15mg capsule PO PRN (21:17)
[2022-02-09] MEDS: insulin Lispro (HumaLOG) vial - multi-dose SQ SCH (21:56)
[2022-02-09] MEDS: insulin glargine (Lantus) pen - multi-dose SQ SCH (21:57)
[2022-02-10 02:00] VITALS: BP 103/52
[2022-02-10] MEDS: normal saline 1000ml 1,000 ML IV SCH ×5 (02:00→22:43)
[2022-02-10] MEDS: ipratropium/albuterol 3ml nebule NEB SCH ×6 (03:05→23:10)
[2022-02-10 06:00] VITALS: BP 104/41
--- NOTE | 2022-02-10 06:37 | NUR ---
Patient in room PCU 3025J. I have received report from CONCEPCION ROTHMAN and had the opportunity to ask questions and assume patient care.
[2022-02-10] MEDS: K and/or MAG REPLACEMENT MC SCH ×2 (08:00→20:00)
[2022-02-10] MEDS: docusate sod 100mg capsule PO SCH ×2 (08:00→20:27)
[2022-02-10 09:07] LABS: BASOPHILS # (AUTO) 0.1 X10'3 (0-0.2); BASOPHILS % (AUTO) 0.7 % (0-1); EOSINOPHILS # (AUTO) 0.3 X10'3 (0-0.9); EOSINOPHILS % (AUTO) 2.5 % (0-6); HEMATOCRIT 27.4 % (35.0-45.0); HEMOGLOBIN 8.9 g/dl (12.0-16.0); LYMPHOCYTES # (AUTO) 1.6 X10'3 (1.1-4.8); LYMPHOCYTES % (AUTO) 15.5 % (21-51); MEAN CORPUSCULAR HEMOGLOBIN 27.5 PG (27.0-31.0); MEAN CORPUSCULAR HGB CONC 32.4 g/dL (33.0-36.5); MEAN CORPUSCULAR VOLUME 84.9 FL (78-98); MEAN PLATELET VOLUME 7.9 FL (7.4-10.4); MONOCYTES # (AUTO) 0.5 X10'3 (0-0.9); MONOCYTES % (AUTO) 5.2 % (2-12); NEUTROPHILS # (AUTO) 7.9 X10'3 (1.8-7.7); NEUTROPHILS % (AUTO) 76.1 % (42-75); PLATELET COUNT 301 X10'3 (140-440); RED BLOOD COUNT 3.23 X10'6 (4.20-5.60); RED CELL DISTRIBUTION WIDTH 13.6 % (11.5-14.5); WHITE BLOOD COUNT 10.3 X10'3 (4.5-11.0)
[2022-02-10] MEDS: atorvastatin 20mg tablet PO SCH (09:14)
[2022-02-10] MEDS: venlafaxine XR 37.5mg cap (Q24H) PO SCH (09:28)
[2022-02-10] MEDS: cholecalciferol (vitamin D3) 1,000 unit (25mcg) tablet PO SCH (09:29)
[2022-02-10] MEDS: ferrous sulfate 325mg tablet PO SCH ×2 (09:29→20:27)
[2022-02-10] MEDS: levoTHYROXINE 75mcg tablet PO SCH (09:30)
[2022-02-10] MEDS: ascorbic acid 500mg tablet PO SCH ×2 (09:31→17:49)
[2022-02-10] MEDS: azithromycin 250mg tablet PO SCH (09:31)
[2022-02-10] MEDS: cloNIDine 0.1 mg tablet PO SCH ×2 (09:32→20:27)
[2022-02-10] MEDS: atenolol 50mg tablet PO SCH (09:33)
[2022-02-10] MEDS: fluconazole 100mg tablet PO SCH (09:34)
[2022-02-10] MEDS: heparin, porcine 5000 units/ml vial SQ SCH ×2 (09:38→20:27)
[2022-02-10] MEDS: insulin Lispro (HumaLOG) vial - multi-dose SQ SCH (09:44)
[2022-02-10] MEDS: tamoxifen 10mg tablet PO SCH (09:49)
[2022-02-10 10:04] LABS: ALANINE AMINOTRANSFERASE 42 U/L (12-78); ALBUMIN/GLOBULIN RATIO 0.5 (1.1-1.5); ALKALINE PHOSPHATASE 60 IU/L (46-116); ANION GAP 5 (8-16); ASPARTATE AMINO TRANSFERASE 55 U/L (10-37); BILIRUBIN,TOTAL 0.2 MG/DL (0.1-1.0); BLOOD UREA NITROGEN 9 MG/DL (7-18); CALCIUM 7.9 MG/DL (8.5-10.1); CHLORIDE 112 MMOL/L (99-107); CREATININE 1.13 MG/DL (0.40-0.90); GLUCOSE 215 MG/DL (70-104); POTASSIUM 4.1 MMOL/L (3.5-5.1); SODIUM 143 MMOL/L (135-145); TOTAL CARBON DIOXIDE 25.9 MMOL/L (24-32); TOTAL PROTEIN 5.8 G/DL (6.4-8.2); eGFR 48 ML/MIN
--- NOTE | 2022-02-10 10:47 | NUR ---
Initial: Pt admitted w/ acute respiratory failure secondary to COPD exacerbation as well as L sided pleural effusion per EMR. Pt previously on Carb controlled diet w/ avg intake 53% x 8 meals partially meeting est nutrient needs. Noted that pt no longer has active diet order. Pt was NPO for cardiac catheterization 02/09 and diet may not have been reentered. D/w RN regarding diet order. [facility] 02/08 receiving routine colace. Would recommend Glucerna TID though unable to provide nutrition intervention while pt does not have active diet order. Will continue to monitor. Recs: 1. Resume Carb control diet as tolerated 2. Glucerna TID once pt has active diet order 3. Bowel care per rx 4. Scaled wts Addendum: 02/10/22 at [address] Amended: Links added.
[2022-02-10 11:00] VITALS: BP 99/44
--- NOTE | 2022-02-10 13:51 | NUR ---
Problems reprioritized. Patient report given, questions answered & plan of care reviewed with CONCEPCION GONZALEZ.
[2022-02-10 15:00] VITALS: BP 110/49
[2022-02-10 18:00] VITALS: BP 123/43
--- NOTE | 2022-02-10 18:20 | NUR ---
Problems reprioritized. Patient report given, questions answered & plan of care reviewed with Zulema JAVIER.
[2022-02-10] MEDS: zolpidem 5mg tablet PO SCH (20:27)
[2022-02-10] MEDS: cefTRIAXone 1g/NS 100ml IVPB 100 ML IV SCH (20:27)
[2022-02-10] MEDS: temazepam 15mg capsule PO PRN (20:29)
[2022-02-10] MEDS: insulin glargine (Lantus) pen - multi-dose SQ SCH (21:26)
[2022-02-10 23:18] VITALS: BP 123/56
[2022-02-11 02:00] VITALS: BP 112/61
[2022-02-11] MEDS: ipratropium/albuterol 3ml nebule NEB SCH ×4 (02:48→15:55)
[2022-02-11] MEDS: normal saline 1000ml 1,000 ML IV SCH ×3 (03:03→13:00)
[2022-02-11 05:50] LABS: BASOPHILS % (AUTO) 0.5 % (0-1); EOSINOPHILS # (AUTO) 0.3 X10'3 (0-0.9); EOSINOPHILS % (AUTO) 3.5 % (0-6); HEMATOCRIT 25.2 % (35.0-45.0); HEMOGLOBIN 8.1 g/dl (12.0-16.0); LYMPHOCYTES # (AUTO) 1.9 X10'3 (1.1-4.8); LYMPHOCYTES % (AUTO) 19.9 % (21-51); MEAN CORPUSCULAR HEMOGLOBIN 27.3 PG (27.0-31.0); MEAN CORPUSCULAR HGB CONC 32.1 g/dL (33.0-36.5); MEAN CORPUSCULAR VOLUME 84.9 FL (78-98); MONOCYTES # (AUTO) 0.6 X10'3 (0-0.9); MONOCYTES % (AUTO) 6.4 % (2-12); NEUTROPHILS # (AUTO) 6.7 X10'3 (1.8-7.7); NEUTROPHILS % (AUTO) 69.7 % (42-75); PLATELET COUNT 269 X10'3 (140-440); RED BLOOD COUNT 2.97 X10'6 (4.20-5.60); RED CELL DISTRIBUTION WIDTH 13.7 % (11.5-14.5); WHITE BLOOD COUNT 9.7 X10'3 (4.5-11.0)
[2022-02-11 06:05] LABS: ALANINE AMINOTRANSFERASE 46 U/L (12-78); ALBUMIN 1.9 G/DL (3.4-5.0); ALBUMIN/GLOBULIN RATIO 0.6 (1.1-1.5); ALKALINE PHOSPHATASE 61 IU/L (46-116); ANION GAP 15 (8-16); ASPARTATE AMINO TRANSFERASE 67 U/L (10-37); BILIRUBIN,TOTAL 0.2 MG/DL (0.1-1.0); BLOOD UREA NITROGEN 7 MG/DL (7-18); BUN/CREATININE RATIO 6.3 (6.6-38.0); CALCIUM 7.9 MG/DL (8.5-10.1); CHLORIDE 112 MMOL/L (99-107); CREATININE 1.11 MG/DL (0.40-0.90); GLUCOSE 91 MG/DL (70-104); POTASSIUM 4.3 MMOL/L (3.5-5.1); SODIUM 145 MMOL/L (135-145); TOTAL CARBON DIOXIDE 18.5 MMOL/L (24-32); TOTAL PROTEIN 5.2 G/DL (6.4-8.2); eGFR 49 ML/MIN
[2022-02-11] MEDS: K and/or MAG REPLACEMENT MC SCH (08:00)
[2022-02-11] MEDS: docusate sod 100mg capsule PO SCH (09:13)
[2022-02-11] MEDS: cloNIDine 0.1 mg tablet PO SCH (09:14)
[2022-02-11] MEDS: atorvastatin 20mg tablet PO SCH (09:15)
[2022-02-11] MEDS: venlafaxine XR 37.5mg cap (Q24H) PO SCH (09:15)
[2022-02-11 09:16] VITALS: BP_SYST 118
[2022-02-11] MEDS: atenolol 50mg tablet PO SCH (09:16)
[2022-02-11] MEDS: ferrous sulfate 325mg tablet PO SCH (09:16)
[2022-02-11] MEDS: azithromycin 250mg tablet PO SCH (09:17)
[2022-02-11] MEDS: ascorbic acid 500mg tablet PO SCH ×2 (09:17→17:46)
[2022-02-11] MEDS: cholecalciferol (vitamin D3) 1,000 unit (25mcg) tablet PO SCH (09:17)
[2022-02-11] MEDS: fluconazole 100mg tablet PO SCH (09:18)
[2022-02-11] MEDS: tamoxifen 10mg tablet PO SCH ×2 (09:19→11:09)
[2022-02-11] MEDS: heparin, porcine 5000 units/ml vial SQ SCH (09:20)
[2022-02-11] MEDS: levoTHYROXINE 75mcg tablet PO SCH (09:22)
== END 2022-02-11 19:00 | disposition home health service (06) | DRG 286 ==
LOC: ER 16:28 → ED HOLD 22:05 → MED 3N 02-06 01:35 → PCU 3S 02-07 13:00 → UNDODISIN 02-09 15:00
PROVIDERS: ADMIT Family Medicine; ATTEND Family Medicine
PROC: 0W9B3ZX Drainage of Left Pleural Cavity, Percutaneous Approach, Diagnostic (ICD-10-PCS; 2022-02-06)
PROC: CB121ZZ Planar Nuclear Medicine Imaging of Lungs and Bronchi using Technetium 99m (Tc-99m) (ICD-10-PCS; 2022-02-07)
PROC: 4A023N7 Measurement of Cardiac Sampling and Pressure, Left Heart, Percutaneous Approach (ICD-10-PCS; principal; 2022-02-09)
PROC: B2111ZZ Fluoroscopy of Multiple Coronary Arteries using Low Osmolar Contrast (ICD-10-PCS; 2022-02-09)
DX: I25.119 Atherosclerotic heart disease of native coronary artery with unspecified angina pectoris (principal); J96.00 Acute respiratory failure, unspecified whether with hypoxia or hypercapnia; I50.23 Acute on chronic systolic (congestive) heart failure; J91.8 Pleural effusion in other conditions classified elsewhere; I13.0 Hypertensive heart and chronic kidney disease with heart failure and stage 1 through stage 4 chronic kidney disease, or unspecified chronic kidney disease; E87.1 Hypo-osmolality and hyponatremia; J44.1 Chronic obstructive pulmonary disease with (acute) exacerbation; N17.9 Acute kidney failure, unspecified; N39.0 Urinary tract infection, site not specified; Z20.822 Contact with and (suspected) exposure to COVID-19; N18.9 Chronic kidney disease, unspecified; Z60.2 Problems related to living alone; F32.A Depression, unspecified; D64.9 Anemia, unspecified; E86.0 Dehydration; J40 Bronchitis, not specified as acute or chronic; E11.22 Type 2 diabetes mellitus with diabetic chronic kidney disease; E11.65 Type 2 diabetes mellitus with hyperglycemia; E78.5 Hyperlipidemia, unspecified; E86.1 Hypovolemia; E89.0 Postprocedural hypothyroidism; G89.4 Chronic pain syndrome; I25.2 Old myocardial infarction; Z79.890 Hormone replacement therapy; Z85.3 Personal history of malignant neoplasm of breast; Z90.5 Acquired absence of kidney; Z95.5 Presence of coronary angioplasty implant and graft; Z88.0 Allergy status to penicillin; Z88.8 Allergy status to other drugs, medicaments and biological substances; Z79.899 Other long term (current) drug therapy
CPT/HCPCS: 32555; 36415; 71045; 78582; 80053; 80061; 81001; 82550; 82945; 82948; 83036; 83540; 83550; 83615; 83690; 83735; 83880; 83986; 84100; 84145; 84157; 84443; 84484; 85007; 85025; 85379; 85610; 85730; 87070; 87077; 87081; 87088; 87635; 88108; 88305; 89051; 92978; 93005; 93306; 93454; 94640; 94760; 99152; 99153; 99285; A4620; A6258; A9539; A9540; C1751; C1753; C1760; C1769; C1894; G0378; J0360; J0456; J0696; J1644; J1815; J2250; J3010; J3490; J7030; Q9967

== ENCOUNTER 2022-05-26 09:17 | Inpatient (IN) | payer MEDICARE, MEDICAID ==
[~2022-05-26] VITALS: Ht 152.4 cm; Wt 61.0 kg
[~2022-05-26 09:17] MED LIST changes: -ASPI-1071 PO; -ATE25T PO; -ATOR40TA7 PO; +ATOR40TA72 PO; -CALC500T11 PO; +CHOL100017 PO; +DULA1.5P SQ; -FERR-29 PO; +FERR325T7 PO; +FURO20TA4 PO; +HYDR-3972 PO; -HYDR-3973 PO; +INSU100I25 SQ; -LEVO125T8 PO; +LEVO150T8 PO; +LEVO500T90 PO; +LOP12.5T PO; -LOSA50TA64 PO; -MULT-38 PO; -OMEP40CA21 PO; -PIOG30TA10 PO; -SERT50TA PO; +TAMO20TA4 PO; -TEN1T PO; -TRIA15CR61 TOP; +VENL37.589 PO; +ZOLP10TA PO; -ZOLP5TAB8 PO
[2022-05-26] MEDS ORDERED: diltiazem 5mg/ml 5ml inj. IV ONE (09:35)
[2022-05-26] MEDS ORDERED: normal saline 1000ML IV soln IVB ONE (09:35)
[2022-05-26] MEDS ORDERED: diltiazem-D5W 125mg/125ml 125 ML IV ONE (09:35)
[2022-05-26] MEDS ORDERED: aspirin 81mg tab.chew PO ONE (09:35)
[2022-05-26] MEDS ORDERED: diltiazem-NS 100mg/100ml 100 ML IV ONE (09:41)
[2022-05-26 09:57] LABS: BASOPHILS # (AUTO) 0.1 X10'3 (0-0.2); BASOPHILS % (AUTO) 1.2 % (0-1); EOSINOPHILS # (AUTO) 0.1 X10'3 (0-0.9); EOSINOPHILS % (AUTO) 0.6 % (0-6); HEMATOCRIT 37.9 % (35.0-45.0); HEMOGLOBIN 12.4 g/dl (12.0-16.0); LYMPHOCYTES # (AUTO) 2.1 X10'3 (1.1-4.8); LYMPHOCYTES % (AUTO) 19.4 % (21-51); MEAN CORPUSCULAR HEMOGLOBIN 27.1 PG (27.0-31.0); MEAN CORPUSCULAR HGB CONC 32.6 g/dL (33.0-36.5); MEAN CORPUSCULAR VOLUME 83.2 FL (78-98); MEAN PLATELET VOLUME 8.4 FL (7.4-10.4); MONOCYTES # (AUTO) 0.8 X10'3 (0-0.9); MONOCYTES % (AUTO) 7.5 % (2-12); NEUTROPHILS # (AUTO) 7.6 X10'3 (1.8-7.7); NEUTROPHILS % (AUTO) 71.3 % (42-75); PLATELET COUNT 345 X10'3 (140-440); RED BLOOD COUNT 4.56 X10'6 (4.20-5.60); RED CELL DISTRIBUTION WIDTH 16.1 % (11.5-14.5); WHITE BLOOD COUNT 10.7 X10'3 (4.5-11.0)
[2022-05-26 10:08] LABS: ALANINE AMINOTRANSFERASE 54 U/L (12-78); ALBUMIN 2.9 G/DL (3.4-5.0); ALBUMIN/GLOBULIN RATIO 0.7 (1.1-1.5); ALKALINE PHOSPHATASE 85 IU/L (46-116); ANION GAP 14 (8-16); ASPARTATE AMINO TRANSFERASE 43 U/L (10-37); BILIRUBIN,TOTAL 0.3 MG/DL (0.1-1.0); BLOOD UREA NITROGEN 23 MG/DL (7-18); BUN/CREATININE RATIO 13.2 (6.6-38.0); CALCIUM 9.2 MG/DL (8.5-10.1); CHLORIDE 105 MMOL/L (99-107); CREATININE 1.74 MG/DL (0.40-0.90); GLUCOSE 250 MG/DL (70-104); POTASSIUM 4.6 MMOL/L (3.5-5.1); SODIUM 142 MMOL/L (135-145); TOTAL CARBON DIOXIDE 23.4 MMOL/L (24-32); TOTAL PROTEIN 7.2 G/DL (6.4-8.2); eGFR 29 ML/MIN
--- NOTE | 2022-05-26 11:32 | NUR ---
CARDIZEM INCREASED TO 7
[2022-05-26] MEDS ORDERED: PERFLUTREN PROTEIN-A MICROSPHR (Optison) 0.22 MG/ML 3ML VIAL IV ONE (11:55)
[2022-05-26] MEDS ORDERED: magnesium hydroxide 30ml (MOM) UD suspension PO PRN (11:55)
[2022-05-26] MEDS ORDERED: ondansetron/PF 4mg/2ml inj IV PRN (11:55)
[2022-05-26] MEDS ORDERED: magnesium 4gm in 100ml NS 100 ML IV PRN (11:55)
[2022-05-26] MEDS ORDERED: potassium CL 10mEq/100ml bag 100 ML IV PRN (11:55)
[2022-05-26] MEDS ORDERED: acetaminophen 325mg tablet PO PRN (11:55)
[2022-05-26] MEDS ORDERED: DEXTROSE 15 GM of carb/4 tabs (each vial/BOTTLE has 4 tablets) PO PRN ×2 (11:55)
[2022-05-26] MEDS ORDERED: glucagon, human recombinant 1mg kit SUBCUT PRN (11:55)
[2022-05-26] MEDS ORDERED: POTASSIUM BICARB 20meq eff tab 20 MEQ TABLET.EFF PO PRN ×2 (11:55)
[2022-05-26] MEDS ORDERED: MESSAGE TO PHARMACY PO ONE (11:55)
[2022-05-26] MEDS ORDERED: mag hydrox/Alum hydrox/simeth 30ml oral suspension PO PRN (11:55)
[2022-05-26] MEDS ORDERED: dextrose 50%-water 50ml dispensing syringe IV PRN ×2 (11:55)
[2022-05-26] MEDS ORDERED: magnesium 2GM in 50ml NS 50 ML IV PRN (11:55)
[2022-05-26] MEDS ORDERED: KEN0.1O TOP (12:59)
[2022-05-26] MEDS ORDERED: OMEP40CA21 PO (12:59)
[2022-05-26] MEDS ORDERED: ONDA8TAB13 PO (12:59)
[2022-05-26] MEDS ORDERED: LEVO150T8 PO (13:00)
[2022-05-26] MEDS ORDERED: FURO-150 PO (13:01)
[2022-05-26] MEDS ORDERED: INSU100I25 SQ (13:05)
[2022-05-26] MEDS ORDERED: enoxaparin 40mg/0.4ml syringe SQ SCH (20:00)
[2022-05-26] MEDS: K and/or MAG REPLACEMENT MC SCH (20:00)
[2022-05-26] MEDS: metoprolol tartrate 12.5mg (1/2 tablet) PO SCH (20:16)
[2022-05-26] MEDS: atorvastatin 20mg tablet PO SCH (20:17)
[2022-05-26] MEDS: docusate sod 100mg capsule PO SCH (20:17)
[2022-05-26] MEDS: apixaban 5mg tablet PO SCH (20:17)
[2022-05-26 20:30] VITALS: BP 125/55
[2022-05-26] MEDS ORDERED: diltiazem-NS 100mg/100ml 100 ML IV SCH (21:25)
[2022-05-26] MEDS: zolpidem 5mg tablet PO SCH (21:30)
[2022-05-26] MEDS: triamcinolone acet 0.1% cream 15gm TP SCH (21:36)
[2022-05-26] MEDS: insulin glargine (Lantus) pen - multi-dose SQ SCH (21:47)
[2022-05-26] MEDS: insulin Lispro (HumaLOG) vial - multi-dose SQ SCH (21:48)
[2022-05-26 22:00] VITALS: BP 138/53
[2022-05-27] VITALS (8 sets, daily range): BP systolic 109–133; BP diastolic 53–77
[2022-05-27] MEDS ORDERED: diltiazem-NS 100mg/100ml 100 ML IV SCH (05:30)
[2022-05-27 06:54] LABS: BASOPHILS # (AUTO) 0.1 X10'3 (0-0.2); BASOPHILS % (AUTO) 0.9 % (0-1); EOSINOPHILS # (AUTO) 0.2 X10'3 (0-0.9); EOSINOPHILS % (AUTO) 2.2 % (0-6); HEMATOCRIT 37.4 % (35.0-45.0); LYMPHOCYTES # (AUTO) 2.3 X10'3 (1.1-4.8); LYMPHOCYTES % (AUTO) 27.8 % (21-51); MEAN CORPUSCULAR HEMOGLOBIN 26.7 PG (27.0-31.0); MEAN CORPUSCULAR HGB CONC 32.1 g/dL (33.0-36.5); MEAN CORPUSCULAR VOLUME 83.2 FL (78-98); MEAN PLATELET VOLUME 8.7 FL (7.4-10.4); MONOCYTES # (AUTO) 0.7 X10'3 (0-0.9); NEUTROPHILS # (AUTO) 4.9 X10'3 (1.8-7.7); NEUTROPHILS % (AUTO) 60.1 % (42-75); PLATELET COUNT 271 X10'3 (140-440); RED BLOOD COUNT 4.49 X10'6 (4.20-5.60); RED CELL DISTRIBUTION WIDTH 16.1 % (11.5-14.5); WHITE BLOOD COUNT 8.1 X10'3 (4.5-11.0)
[2022-05-27 07:10] LABS: ALANINE AMINOTRANSFERASE 50 U/L (12-78); ALBUMIN/GLOBULIN RATIO 0.7 (1.1-1.5); ALKALINE PHOSPHATASE 98 IU/L (46-116); ANION GAP 8 (8-16); ASPARTATE AMINO TRANSFERASE 38 U/L (10-37); BILIRUBIN,TOTAL 0.3 MG/DL (0.1-1.0); BLOOD UREA NITROGEN 22 MG/DL (7-18); BUN/CREATININE RATIO 14.5 (6.6-38.0); CHLORIDE 107 MMOL/L (99-107); CREATININE 1.52 MG/DL (0.40-0.90); GLUCOSE 140 MG/DL (70-104); MAGNESIUM 1.9 MG/DL (1.5-2.4); POTASSIUM 3.8 MMOL/L (3.5-5.1); SODIUM 141 MMOL/L (135-145); TOTAL CARBON DIOXIDE 25.8 MMOL/L (24-32); TOTAL PROTEIN 7.2 G/DL (6.4-8.2); eGFR 34 ML/MIN
[2022-05-27] MEDS: venlafaxine XR 37.5mg cap (Q24H) PO SCH (08:00)
[2022-05-27] MEDS: pantoprazole 40mg Tablet.DR PO SCH (08:00)
[2022-05-27] MEDS: cholecalciferol (vitamin D3) 1,000 unit (25mcg) tablet PO SCH (08:00)
[2022-05-27] MEDS: triamcinolone acet 0.1% cream 15gm TP SCH ×2 (08:00→19:10)
[2022-05-27] MEDS: furosemide 20MG tablet PO SCH (08:00)
[2022-05-27] MEDS: metoprolol tartrate 12.5mg (1/2 tablet) PO SCH ×2 (08:00→19:10)
[2022-05-27] MEDS: tamoxifen 10mg tablet PO SCH (08:00)
[2022-05-27] MEDS: apixaban 5mg tablet PO SCH ×2 (08:00→19:10)
[2022-05-27] MEDS: levoTHYROXINE 75mcg tablet PO SCH (08:00)
[2022-05-27] MEDS: K and/or MAG REPLACEMENT MC SCH ×2 (08:00→20:59)
[2022-05-27] MEDS: docusate sod 100mg capsule PO SCH ×2 (08:00→19:10)
--- NOTE | 2022-05-27 08:21 | NUR ---
Page Sent promotional table spacer PAGER ID: [phone] MESSAGE: [id number] KATH. PT ON CARDIZEM GTT LOST IV ACCES UNABLE TO OBTAIN NEW ACCESS. PT IN [place] AND HAS BEEN MOST OF THE NIGHT. CAN WE SWITCH TO PO CARDIZEM AND GIVE IT NOW ? VERO @2855
--- NOTE | 2022-05-27 08:47 | NUR ---
Diabetes consult: Noted pt w/ hx of DM A1c 9.1 down from 9.9 in March of this year. Pt had received written and verbal DM on prior admit in last March, no further education planned this admit. Addendum: 05/27/22 at [address] Amended: Links added.
[2022-05-27] MEDS: diltiazem 30mg tablet PO SCH ×3 (09:05→19:09)
[2022-05-27] MEDS ORDERED: pneumococcal 23-VAL P-sac vacc 25 mcg/0.5ml vial IMVAC ONE (13:00)
[2022-05-27] MEDS: insulin Lispro (HumaLOG) vial - multi-dose SQ SCH ×2 (13:39→19:09)
[2022-05-27] MEDS: zolpidem 5mg tablet PO SCH (21:19)
[2022-05-27] MEDS: atorvastatin 20mg tablet PO SCH (21:20)
[2022-05-27] MEDS: insulin glargine (Lantus) pen - multi-dose SQ SCH (21:21)
[2022-05-28] MEDS: diltiazem 30mg tablet PO SCH (03:50)
[2022-05-28 06:00] VITALS: BP 135/57
[2022-05-28 06:51] LABS: BASOPHILS # (AUTO) 0.1 X10'3 (0-0.2); BASOPHILS % (AUTO) 0.7 % (0-1); EOSINOPHILS # (AUTO) 0.2 X10'3 (0-0.9); EOSINOPHILS % (AUTO) 2.2 % (0-6); HEMOGLOBIN 10.4 g/dl (12.0-16.0); MEAN CORPUSCULAR HEMOGLOBIN 26.8 PG (27.0-31.0); MEAN CORPUSCULAR HGB CONC 32.6 g/dL (33.0-36.5); MEAN CORPUSCULAR VOLUME 82.2 FL (78-98); MEAN PLATELET VOLUME 8.1 FL (7.4-10.4); MONOCYTES # (AUTO) 0.6 X10'3 (0-0.9); NEUTROPHILS % (AUTO) 63.1 % (42-75); PLATELET COUNT 224 X10'3 (140-440); RED BLOOD COUNT 3.89 X10'6 (4.20-5.60); RED CELL DISTRIBUTION WIDTH 15.8 % (11.5-14.5); WHITE BLOOD COUNT 7.8 X10'3 (4.5-11.0)
[2022-05-28 07:13] LABS: ALANINE AMINOTRANSFERASE 42 U/L (12-78); ALBUMIN 2.7 G/DL (3.4-5.0); ALBUMIN/GLOBULIN RATIO 0.8 (1.1-1.5); ALKALINE PHOSPHATASE 77 IU/L (46-116); ANION GAP 10 (8-16); ASPARTATE AMINO TRANSFERASE 32 U/L (10-37); BILIRUBIN,TOTAL 0.4 MG/DL (0.1-1.0); BLOOD UREA NITROGEN 19 MG/DL (7-18); BUN/CREATININE RATIO 13.8 (6.6-38.0); CALCIUM 8.7 MG/DL (8.5-10.1); CHLORIDE 108 MMOL/L (99-107); CREATININE 1.38 MG/DL (0.40-0.90); GLUCOSE 105 MG/DL (70-104); MAGNESIUM 1.7 MG/DL (1.5-2.4); POTASSIUM 3.9 MMOL/L (3.5-5.1); SODIUM 143 MMOL/L (135-145); TOTAL CARBON DIOXIDE 24.6 MMOL/L (24-32); TOTAL PROTEIN 6.3 G/DL (6.4-8.2); eGFR 38 ML/MIN
[2022-05-28] MEDS: K and/or MAG REPLACEMENT MC SCH ×2 (08:00→19:36)
[2022-05-28] MEDS: furosemide 20MG tablet PO SCH (08:11)
[2022-05-28] MEDS: venlafaxine XR 37.5mg cap (Q24H) PO SCH (08:11)
[2022-05-28] MEDS: docusate sod 100mg capsule PO SCH ×2 (08:12→19:28)
[2022-05-28] MEDS: apixaban 5mg tablet PO SCH ×2 (08:12→19:29)
[2022-05-28] MEDS: metoprolol tartrate 12.5mg (1/2 tablet) PO SCH ×2 (08:13→19:30)
[2022-05-28] MEDS: pantoprazole 40mg Tablet.DR PO SCH (08:13)
[2022-05-28] MEDS: levoTHYROXINE 75mcg tablet PO SCH (08:13)
[2022-05-28] MEDS: diltiazem CD 120mg capsule (once-daily) PO SCH (08:13)
[2022-05-28] MEDS: cholecalciferol (vitamin D3) 1,000 unit (25mcg) tablet PO SCH (08:13)
[2022-05-28] MEDS: triamcinolone acet 0.1% cream 15gm TP SCH ×2 (08:15→19:28)
[2022-05-28] MEDS: tamoxifen 10mg tablet PO SCH (08:15)
[2022-05-28] MEDS ORDERED: bisacodyl 10mg suppository rectal RC STA (08:49)
[2022-05-28] MEDS ORDERED: mineral oil 133ml enema RC PRN (10:15)
[2022-05-28 11:00] VITALS: BP 114/57
[2022-05-28] MEDS: lactulose 20gm/30ml cup PO SCH ×2 (14:07→19:28)
[2022-05-28] MEDS: insulin Lispro (HumaLOG) vial - multi-dose SQ SCH ×2 (14:09→19:27)
[2022-05-28 15:00] VITALS: BP 121/60
[2022-05-28] MEDS ORDERED: metoclopramide 5 mg/ml inj IV STA (17:01)
[2022-05-28] MEDS ORDERED: magnesium citrate 296ml oral solution PO STA (17:01)
[2022-05-28 18:00] VITALS: BP 101/61
[2022-05-28] MEDS: atorvastatin 20mg tablet PO SCH (19:29)
[2022-05-28 22:00] VITALS: BP 135/59
[2022-05-28] MEDS: zolpidem 5mg tablet PO SCH (22:10)
[2022-05-28] MEDS: insulin glargine (Lantus) pen - multi-dose SQ SCH (22:13)
[2022-05-29] MEDS: lactulose 20gm/30ml cup PO SCH ×3 (02:00→14:00)
[2022-05-29 03:38] VITALS: BP 112/52
[2022-05-29 06:00] VITALS: BP 125/67
[2022-05-29 07:41] LABS: ALANINE AMINOTRANSFERASE 43 U/L (12-78); ALBUMIN 2.6 G/DL (3.4-5.0); ALBUMIN/GLOBULIN RATIO 0.7 (1.1-1.5); ALKALINE PHOSPHATASE 78 IU/L (46-116); ANION GAP 12 (8-16); ASPARTATE AMINO TRANSFERASE 39 U/L (10-37); BILIRUBIN,TOTAL 0.3 MG/DL (0.1-1.0); BLOOD UREA NITROGEN 15 MG/DL (7-18); BUN/CREATININE RATIO 9.9 (6.6-38.0); CALCIUM 8.5 MG/DL (8.5-10.1); CHLORIDE 109 MMOL/L (99-107); CREATININE 1.52 MG/DL (0.40-0.90); GLUCOSE 109 MG/DL (70-104); MAGNESIUM 1.7 MG/DL (1.5-2.4); POTASSIUM 3.6 MMOL/L (3.5-5.1); SODIUM 142 MMOL/L (135-145); TOTAL CARBON DIOXIDE 20.9 MMOL/L (24-32); TOTAL PROTEIN 6.3 G/DL (6.4-8.2); eGFR 34 ML/MIN
[2022-05-29] MEDS: docusate sod 100mg capsule PO SCH (08:00)
[2022-05-29] MEDS: K and/or MAG REPLACEMENT MC SCH (08:00)
[2022-05-29 08:03] LABS: BASOPHILS # (AUTO) 0.1 X10'3 (0-0.2); BASOPHILS % (AUTO) 0.7 % (0-1); EOSINOPHILS # (AUTO) 0.1 X10'3 (0-0.9); EOSINOPHILS % (AUTO) 1.5 % (0-6); HEMATOCRIT 34.9 % (35.0-45.0); HEMOGLOBIN 11.2 g/dl (12.0-16.0); LYMPHOCYTES # (AUTO) 1.4 X10'3 (1.1-4.8); LYMPHOCYTES % (AUTO) 14.6 % (21-51); MEAN CORPUSCULAR HEMOGLOBIN 27.4 PG (27.0-31.0); MEAN CORPUSCULAR HGB CONC 32.2 g/dL (33.0-36.5); MEAN CORPUSCULAR VOLUME 85.2 FL (78-98); MEAN PLATELET VOLUME 8.5 FL (7.4-10.4); MONOCYTES # (AUTO) 0.6 X10'3 (0-0.9); MONOCYTES % (AUTO) 6.5 % (2-12); NEUTROPHILS # (AUTO) 7.1 X10'3 (1.8-7.7); NEUTROPHILS % (AUTO) 76.7 % (42-75); PLATELET COUNT 233 X10'3 (140-440); RED CELL DISTRIBUTION WIDTH 15.8 % (11.5-14.5); WHITE BLOOD COUNT 9.3 X10'3 (4.5-11.0)
[2022-05-29] MEDS ORDERED: APIX5TAB3 PO (10:04)
[2022-05-29] MEDS ORDERED: CARCD120C PO (10:04)
[2022-05-29] MEDS: insulin Lispro (HumaLOG) vial - multi-dose SQ SCH (10:07)
[2022-05-29] MEDS: triamcinolone acet 0.1% cream 15gm TP SCH (10:08)
[2022-05-29] MEDS: apixaban 5mg tablet PO SCH (10:09)
[2022-05-29] MEDS: pantoprazole 40mg Tablet.DR PO SCH (10:09)
[2022-05-29] MEDS: venlafaxine XR 37.5mg cap (Q24H) PO SCH (10:10)
[2022-05-29] MEDS: levoTHYROXINE 75mcg tablet PO SCH (10:10)
[2022-05-29] MEDS: metoprolol tartrate 12.5mg (1/2 tablet) PO SCH (10:10)
[2022-05-29] MEDS: tamoxifen 10mg tablet PO SCH (10:10)
[2022-05-29] MEDS: diltiazem CD 120mg capsule (once-daily) PO SCH (10:11)
[2022-05-29] MEDS: furosemide 20MG tablet PO SCH (10:11)
[2022-05-29] MEDS: cholecalciferol (vitamin D3) 1,000 unit (25mcg) tablet PO SCH (10:11)
[2022-05-29 11:00] VITALS: BP 95/47
--- NOTE | 2022-05-29 12:36 | NUR ---
Pts BG is 59, asymptomatic. Pt just drank 1 apple juice and has lunch infront of her. Will recheck BG in 15 min.
[2022-05-29] MEDS ORDERED: Dulaglutide (Trulicity) 0.5 ML SQ SCH (13:10)
--- NOTE | 2022-05-29 16:10 | NUR ---
Pt stable for d/c per MD order All d/c ppwk was reviewed with pt and pt caregiver, Dolores. All questions, comment and concerns were answered at this time. New RX was sent to [facility] off of [address]. Pt caregiver will make an appt with Denzel Watson for follow. Pt will be going home and resuming home health per MD notes in d/c ppwk. All personal belongings were removed from room and packed in belongings bag. Pt took all personal belongings with her and was wheeled down in W/C by nursing staff to private vehicle where caregiver, Dolores, was waiting. X-PIV was removed - pt tolerated well. Tele box was removed and returned to tele cardiac monitor technician.
== END 2022-05-29 14:57 | disposition home health service (06) | DRG 280 ==
LOC: ER 09:17 → ED HOLD 12:05 → PCU 3S 19:47
PROVIDERS: ADMIT Family Medicine; ATTEND Family Medicine
DX: I48.91 Unspecified atrial fibrillation (principal); I21.A1 Myocardial infarction type 2; N17.0 Acute kidney failure with tubular necrosis; I13.0 Hypertensive heart and chronic kidney disease with heart failure and stage 1 through stage 4 chronic kidney disease, or unspecified chronic kidney disease; I50.32 Chronic diastolic (congestive) heart failure; K59.00 Constipation, unspecified; I25.10 Atherosclerotic heart disease of native coronary artery without angina pectoris; E89.0 Postprocedural hypothyroidism; E11.22 Type 2 diabetes mellitus with diabetic chronic kidney disease; F32.A Depression, unspecified; I48.92 Unspecified atrial flutter; N18.30 Chronic kidney disease, stage 3 unspecified; Z85.3 Personal history of malignant neoplasm of breast; I25.2 Old myocardial infarction; Z88.0 Allergy status to penicillin; Z88.8 Allergy status to other drugs, medicaments and biological substances; Z95.1 Presence of aortocoronary bypass graft; Z90.5 Acquired absence of kidney; Z79.899 Other long term (current) drug therapy; Z79.4 Long term (current) use of insulin
CPT/HCPCS: 36410; 36415; 71045; 74018; 76937; 80053; 82948; 83036; 83735; 83880; 84484; 85025; 87081; 90732; 93005; 93306; 97116; 97161; 97530; 99285; C1751; G0378; J1650; J1815; J2765; J3490; J7030

== ENCOUNTER 2024-08-19 10:45 | Emergency (ER) | payer MEDICARE, MEDICAID ==
[~2024-08-19] VITALS: Ht 152.4 cm; Wt 58.5 kg
[~2024-08-19 10:45] MED LIST changes: +APIX5TAB3 PO; +CARCD120C PO; -FERR325T7 PO; +FURO-150 PO; -FURO20TA4 PO; -HYDR-3972 PO; -INSU100I25 SQ; +INSU100I27 SQ; +KEN0.1O TOP; -LEVO500T90 PO; +OMEP40CA21 PO; +ONDA-245 PO
[2024-08-19 10:53] VITALS: TEMP 98
[2024-08-19 12:05] LABS: BILIRUBIN,URINE NEGATIVE (Neg); CLARITY,URINE SLIGHTLY CLOUDY (Clear); COLOR,URINE STRAW (Yellow); GLUCOSE, URINE >=1000 mg/dl (Neg); KETONES,URINE TRACE mg/dl (Neg); LEUKOCYTE ESTERASE ,URINE NEGATIVE (Neg); NITRITES, URINE NEGATIVE (Neg); OCCULT BLOOD,URINE TRACE-INTACT (Neg); PROTEIN,URINE 30 mg/dl (Neg); UROBILINOGEN,URINE 0.2 E.U/dL (0.2-1.0)
[2024-08-19 12:06] LABS: BASOPHILS % (AUTO) 0.6 % (0-1); EOSINOPHILS % (AUTO) 0.2 % (0-6); HEMATOCRIT 41.2 % (35.0-45.0); HEMOGLOBIN 13.1 g/dl (12.0-16.0); LYMPHOCYTES # (AUTO) 1.3 X10'3 (1.1-4.8); LYMPHOCYTES % (AUTO) 18.6 % (21-51); MEAN CORPUSCULAR HEMOGLOBIN 27.8 PG (27.0-31.0); MEAN CORPUSCULAR HGB CONC 31.9 g/dL (33.0-36.5); MEAN CORPUSCULAR VOLUME 87.2 FL (78-98); MEAN PLATELET VOLUME 8.9 FL (7.4-10.4); MONOCYTES # (AUTO) 0.3 X10'3 (0-0.9); MONOCYTES % (AUTO) 3.8 % (2-12); NEUTROPHILS # (AUTO) 5.2 X10'3 (1.8-7.7); NEUTROPHILS % (AUTO) 76.8 % (42-75); PLATELET COUNT 165 X10'3 (140-440); RED BLOOD COUNT 4.72 X10'6 (4.20-5.60); RED CELL DISTRIBUTION WIDTH 14.4 % (11.5-14.5); WHITE BLOOD COUNT 6.8 X10'3 (4.5-11.0)
[2024-08-19 12:08] LABS: UA COLLECTION TYPE CLN CATCH MIDSTREAM
[2024-08-19 12:13] LABS: BACTERIA,URINE 1+ /HPF (Neg); MUCUS STRANDS NONE SEEN /LPF (Neg); RBC,URINE 0-2 /HPF (0-2); SQUAMOUS EPITHELIAL CELL,UR MODERATE /LPF (FEW); TRANSITIONAL EPI CELLS,URINE MANY /HPF; WBC CLUMPS,URINE FEW /HPF (NEGATIVE)
[2024-08-19 12:16] LABS: ALANINE AMINOTRANSFERASE 17 U/L (12-78); ALBUMIN 3.5 G/DL (3.4-5.0); ALKALINE PHOSPHATASE 100 IU/L (46-116); ANION GAP 14 (8-16); ASPARTATE AMINO TRANSFERASE 19 U/L (10-37); BILIRUBIN,TOTAL 0.6 MG/DL (0.1-1.0); BLOOD UREA NITROGEN 24 MG/DL (7-18); BUN/CREATININE RATIO 12.2 (10.0-20.0); CALCIUM 8.9 MG/DL (8.5-10.1); CHLORIDE 104 MMOL/L (99-107); CREATININE 1.97 MG/DL (0.40-0.90); GLUCOSE 166 MG/DL (70-104); LIPASE 52 U/L (16-77); SODIUM 141 MMOL/L (135-145); TOTAL CARBON DIOXIDE 23.4 MMOL/L (24-32); TOTAL PROTEIN 7.1 G/DL (6.4-8.2); eCRCL 20 ML/MIN; eGFR 25 ML/MIN
[2024-08-19] MEDS: FOSFOMYCIN TROMETHAMINE 3 GM PACKET PO ONE (14:31)
[2024-08-19 15:47] VITALS: BP 128/64; PULSE 98; RESP 12; O2SAT 96
== END 2024-08-19 15:50 | disposition home or self-care (01) ==
LOC: ER 10:46
DX: N39.0 Urinary tract infection, site not specified (principal); E03.9 Hypothyroidism, unspecified; E11.22 Type 2 diabetes mellitus with diabetic chronic kidney disease; N18.9 Chronic kidney disease, unspecified; I25.10 Atherosclerotic heart disease of native coronary artery without angina pectoris; I25.2 Old myocardial infarction; I50.9 Heart failure, unspecified; Z85.3 Personal history of malignant neoplasm of breast; Z90.89 Acquired absence of other organs; Z60.2 Problems related to living alone; Z88.0 Allergy status to penicillin; Z88.8 Allergy status to other drugs, medicaments and biological substances; Z79.899 Other long term (current) drug therapy; Z79.4 Long term (current) use of insulin; Z95.1 Presence of aortocoronary bypass graft; Z98.890 Other specified postprocedural states
CPT/HCPCS: 36415; 80053; 81001; 83690; 85025; 93005; 99284